=== PATIENT | male | born 1960 | race Caucasian/White ===

== ENCOUNTER → 2019-03-22 08:06 | Outpatient (CLI) | payer MEDICAID | END | disposition home or self-care (01) | LOC: D.CT 08:00 | PROVIDERS: ATTEND Family Medicine | DX: R93.89 Abnormal findings on diagnostic imaging of other specified body structures (principal) ==

== ENCOUNTER → 2019-05-08 09:26 | Outpatient (CLI) | payer MEDICAID | END | disposition home or self-care (01) | LOC: D.RT 09:26 | PROVIDERS: ATTEND Family Medicine | DX: J44.9 Chronic obstructive pulmonary disease, unspecified (principal) ==

== ENCOUNTER → 2019-08-19 09:07 | Outpatient (CLI) | payer MEDICAID ==
[2019-08-20 12:09] LABS: ANA REFLEX - DIRECT Negative (Negative)
[2019-08-21 10:10] LABS: ANGIOTENSIN CONVERTING ENZYME 24 U/L (14-82)
--- NOTE | 2019-08-21 11:17 | EC ---
PATIENT:SUSHIL ALVARENGA DATE OF SERVICE: 08/20/19 SEX: M MEDICAL RECORD: [id number] DATE OF : 58 LOCATION:[facility] AGE OF PATIENT: 59 ADMISSION DATE: 08/19/19 REFERRING PHYSICIAN: INTERPRETING PHYSICIAN: LIZBETH SANABRIA MD ECHOCARDIOGRAM REPORT ECHO CHARGES 4 ECHO COMPLETE Date: 08/19/19 CLINICAL DIAGNOSIS: DYSPNEA ECHOCARDIOGRAPHIC MEASUREMENTS (adult normal given) AC root (d.<3.7cm) 3.8 cm LV Septum d (<1.2 cm> 1.3 cm Valve Excursion 1.6 cm LV Septum (systole) 1.4 cm Left Atria (s.<4.0cm> 3.5 cm LVPW d(<1.2cm) 1.5 cm RV (d.<2.3cm) 3.2 cm LVPW (sytole) 1.7 cm LV diastole(<5.6CM) 4.2 cm MV E-F(>70mm/sec) cm LV systole 2.8 cm LVOT Diameter 2.1 cm MV exc.(>10mm) cm Est.ejection fraction (50-75%) % DOPPLER: LVIT cm/sec A 81.00cm/sec E 77.0 cm/sec LA cm/sec RVSP 18 mmHg LVOT 82 cm/sec AOP1/2T m/s Asc. Ao 134 cm/sec RVOT 57 cm/sec RA cm/sec PA 109 cm/sec AV Gradient Peak mmHg AV Mean mmHg AV Area 2.4 cm MV Gradient Peak 2.70 mmHg MV Mean 1.23 mmHg MV Area cm COMMENTS: Meat Packer: Jared WINN Human Resources Compliance Manager: 1 Dr. Sanabria TAPE# PACS Pericardial Effusion N DATE OF SERVICE: Echocardiogram FINDINGS: 1. Left ventricular chamber size is within normal limits. Left ventricular systolic function is normal. Overall ejection fraction estimated at 60%. 2. Left atrium, right atrium, and right ventricular chamber sizes are within normal limits. 3. Valvular structures have normal structure and motion. ECHOCARDIOGRAM REPORT [id number] SUSHIL ALVARENGA 4. Doppler interrogation reveals no significant valvular insufficiency or stenosis. Pulmonary systolic pressure is estimated at 18 mmHg. 5. No evidence of pericardial effusion or left ventricular thrombus. TRANSINT:[id number] Voice Confirmation ID: [id number] DOCUMENT ID: [id number] LIZBETH SANABRIA MD at 1117 CC: [id number] DICTATION DATE: 08/20/19 155 ART INSTALLER: 08/20/19 1841 [place] [id number] [place] [id number]
[2019-08-22 19:07] LABS: FUNGAL - ASP FLAVUS Negative (Neg:<1:1); FUNGAL - ASP NIGER Negative (Neg:<1:1); FUNGAL - ASPER FUMIGATUS Negative (Neg:<1:1)
== END | disposition home or self-care (01) ==
LOC: D.RT 08:00 → D.ECHO 09:00 → D.RT 09:07
PROVIDERS: ATTEND Internal Medicine Pulmonary Disease
DX: R91.8 Other nonspecific abnormal finding of lung field (principal); J44.9 Chronic obstructive pulmonary disease, unspecified; R06.00 Dyspnea, unspecified

== ENCOUNTER → 2019-10-14 13:43 | Outpatient (CLI) | payer MEDICAID | END | disposition home or self-care (01) | LOC: D.RT 13:30 | PROVIDERS: ATTEND Internal Medicine Pulmonary Disease | DX: J44.9 Chronic obstructive pulmonary disease, unspecified (principal) ==

== ENCOUNTER → 2019-11-26 10:47 | Outpatient (CLI) | payer BC | END | disposition home or self-care (01) | LOC: D.CT 10:30 | PROVIDERS: ATTEND Internal Medicine Pulmonary Disease | DX: R91.8 Other nonspecific abnormal finding of lung field (principal) ==